=== PATIENT | female | born 1970 | race Hispanic/Latino ===

== ENCOUNTER 2020-02-17 11:58 | Emergency (ER) | payer SELFPAY ==
[~2020-02-17] VITALS: Ht 154.9 cm; Wt 71.7 kg
[2020-02-17] MEDS ORDERED: PHENAZOPYRIDIN200 MG PO (12:44)
[2020-02-17] MEDS ORDERED: SULFAMETHOXAZO1 EAC1 PO (12:44)
[2020-02-17] MEDS ORDERED: PROZAC20 MG PO (12:45)
== END 2020-02-17 16:31 | disposition home or self-care (01) ==
LOC: ED 11:58
DX: J02.9 Acute pharyngitis, unspecified (principal); N39.0 Urinary tract infection, site not specified; Z20.822 Contact with and (suspected) exposure to COVID-19
CPT/HCPCS: 80053; 81001; 84703; 85025; 87880; 99284; C9803; J1100; U0003

== ENCOUNTER 2021-02-20 12:46 | Emergency (ER) | payer BC ==
[~2021-02-20] VITALS: Ht 154.9 cm; Wt 72.7 kg
[~2021-02-20 12:46] MED LIST: PHENAZOPYRIDIN200 MG PO; PROZAC20 MG PO; SULFAMETHOXAZO1 EAC1 PO
[2021-02-20] MEDS ORDERED: HYDROCODON-ACE1 EA10 PO (14:53)
== END 2021-02-20 15:06 | disposition home or self-care (01) ==
LOC: ED 12:46
DX: N13.2 Hydronephrosis with renal and ureteral calculous obstruction (principal); Z79.899 Other long term (current) drug therapy
CPT/HCPCS: 74176; 80048; 81001; 85025; 96374; 99284-25; J1885